=== PATIENT | female | born 1975 ===

== ENCOUNTER 2017-10-07 13:32 | Emergency (ER) | payer OTHER ==
[2017-10-07 13:44] VITALS: BP 145/69; PULSE 77; RESP 18; TEMP 97.6; O2SAT 100
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
== END 2017-10-07 16:19 | disposition home or self-care (01) ==
LOC: H.ER 13:32
DX: S89.92XA Unspecified injury of left lower leg, initial encounter (principal); V43.62XA Car passenger injured in collision with other type car in traffic accident, initial encounter; Y92.410 Unspecified street and highway as the place of occurrence of the external cause; Z88.0 Allergy status to penicillin